=== PATIENT | female | born 1955 | race Caucasian/White ===

== ENCOUNTER 2020-08-01 18:40 | Emergency (ER) | payer BC ==
[2020-08-01] MEDS ORDERED: FIORINAL CAPSULE1 EA PO (23:30)
[2020-08-01] MEDS ORDERED: ZOFRAN4 MG PO (23:30)
== END 2020-08-01 23:45 | disposition home or self-care (01) ==
LOC: ER1 18:40
DX: R51.9 Headache, unspecified (principal); Z88.5 Allergy status to narcotic agent
CPT/HCPCS: 70450; 96374; 96375; 99283; J0780; J1200; J2270

== ENCOUNTER → 2020-08-07 | Outpatient (CLI) | payer BC ==
[~2020-08-07] VITALS: Ht 170.2 cm; Wt 113.4 kg
[~2020-08-07] MED LIST: FIORINAL CAPSULE1 EA PO; ZOFRAN4 MG PO
== END ==
LOC: OPSV 10:48
DX: G43.719 Chronic migraine without aura, intractable, without status migrainosus (principal)
CPT/HCPCS: 96372; 96374; J0780; J1110